=== PATIENT | male | born 1940 | race Caucasian/White ===

== ENCOUNTER 2017-11-28 23:55 | Inpatient (IN) | payer OTHER, MEDICARE ==
[~2017-11-28] VITALS: Ht 165.1 cm; Wt 89.0 kg
[~2017-11-28 23:55] MED LIST: APIX5TAB3 PO; CHLO25TA10 PO; CHOL10008 PO; GLIP10TA11 PO; LIDO700A5 TOP; LORA1TAB PO; LOSA50TA3 PO; MELO-100 PO; METF10002 PO; METO50TA7 PO; OMEP20CA10 PO; ROPI1TAB2 PO; ROSU20TA PO; TRAZ-143 PO
[2017-11-29] VITALS (7 sets, daily range): BP systolic 129–149; BP diastolic 66–88
[2017-11-29 00:32] LABS: BASOPHILS % (AUTO) 0.4 % (0-1); EOSINOPHILS # (AUTO) 0.3 X10'3 (0-0.9); EOSINOPHILS % (AUTO) 2.6 % (0-6); HEMATOCRIT 36.8 % (42.0-52.0); HEMOGLOBIN 12.6 g/dl (14.0-17.9); LYMPHOCYTES # (AUTO) 1.4 X10'3 (1.1-4.8); LYMPHOCYTES % (AUTO) 12.1 % (21-51); MEAN CORPUSCULAR HEMOGLOBIN 28.7 PG (27.0-31.0); MEAN CORPUSCULAR HGB CONC 34.3 % (33.0-36.5); MEAN CORPUSCULAR VOLUME 83.7 FL (78-98); MEAN PLATELET VOLUME 9.3 FL (7.4-10.4); MONOCYTES # (AUTO) 0.5 X10'3 (0-0.9); MONOCYTES % (AUTO) 4.4 % (2-12); NEUTROPHILS # (AUTO) 9.5 X10'3 (1.8-7.7); NEUTROPHILS % (AUTO) 80.5 % (42-75); PLATELET COUNT 338 X10'3 (140-440); RED BLOOD COUNT 4.39 X10'6 (4.70-6.10); RED CELL DISTRIBUTION WIDTH 16.1 % (11.5-14.5); WHITE BLOOD COUNT 11.7 X10'3 (4.5-11.0)
[2017-11-29 00:44] LABS: INR 1.1 INR; PARTIAL THROMBOPLASTIN TIME 29 SECONDS (22-32); PROTHROMBIN TIME 11.7 SECONDS (9.0-12.0)
[2017-11-29 00:56] LABS: ALANINE AMINOTRANSFERASE 65 U/L (12-78); ALBUMIN 3.6 G/DL (3.4-5.0); ALBUMIN/GLOBULIN RATIO 0.9 (1.1-1.5); ALKALINE PHOSPHATASE 85 IU/L (46-116); ANION GAP 15 (8-16); ASPARTATE AMINO TRANSFERASE 58 U/L (10-37); BILIRUBIN,TOTAL 0.4 MG/DL (0.1-1.0); BLOOD UREA NITROGEN 27 MG/DL (7-18); BUN/CREATININE RATIO 13.6 (5.4-32.0); CALCIUM 9.1 MG/DL (8.5-10.1); CHLORIDE 100 MMOL/L (99-107); CREATININE 1.98 MG/DL (0.60-1.10); GLUCOSE 311 MG/DL (70-104); MAGNESIUM 1.3 MG/DL (1.5-2.4); POTASSIUM 4.5 MMOL/L (3.5-5.1); SODIUM 139 MMOL/L (135-145); TOTAL CARBON DIOXIDE 23.6 MMOL/L (24-32); TOTAL PROTEIN 7.8 G/DL (6.4-8.2); eGFR 33 ML/MIN
[2017-11-29] MEDS ORDERED: normal saline 1000ml 1,000 ML IV ONE (01:30)
[2017-11-29] MEDS ORDERED: LORazepam 1 MG tablet PO PRN ×2 (05:05)
[2017-11-29] MEDS ORDERED: ROPINIRole 1mg tablet PO PRN (05:05)
[2017-11-29] MEDS ORDERED: magnesium hydroxide 30ml (MOM) UD suspension PO PRN (05:05)
[2017-11-29] MEDS ORDERED: mag hydrox/Alum hydrox/simeth 30ml oral suspension PO PRN (05:05)
[2017-11-29] MEDS ORDERED: acetaminophen 325mg tablet PO PRN (05:05)
[2017-11-29] MEDS ORDERED: traZODone 50mg tablet PO PRN (05:05)
[2017-11-29] MEDS ORDERED: ondansetron/PF 4mg/2ml inj IV PRN (05:05)
[2017-11-29] MEDS ORDERED: non-formulary drug (Glipizide 1 TAB) PO SCH (07:30)
[2017-11-29] MEDS: LIDOcaine 5% patch TP SCH (08:00)
[2017-11-29] MEDS ORDERED: non-formulary drug (Rosuvastatin Calcium* (Crestor*) 1 TAB) PO SCH ×2 (08:00)
[2017-11-29] MEDS ORDERED: non-formulary drug (Omeprazole 1 CAP) PO SCH (08:00)
[2017-11-29] MEDS ORDERED: pneumococcal 23-VAL P-sac vacc 25 mcg/0.5ml vial IMVAC ONE (08:05)
[2017-11-29] MEDS: atorvastatin 20mg tablet PO SCH (08:45)
[2017-11-29] MEDS: losartan 50mg tablet PO SCH (08:46)
[2017-11-29] MEDS: metoprolol succinate 25mg (24-HOUR) SR. Tablet PO SCH (08:46)
[2017-11-29] MEDS: apixaban 5mg tablet PO SCH ×2 (08:47→20:00)
[2017-11-29] MEDS: pantoprazole 40mg Tablet.DR PO SCH (08:47)
[2017-11-29] MEDS ORDERED: furosemide 10 MG/1 ML 10ml inj IV SCH (10:40)
[2017-11-29 11:04] LABS: CHOL/HDL RATIO 3.8 (0.00-4.99); CHOLESTEROL 168 MG/DL (0-200); HDL CHOLESTEROL 44 MG/DL (35-60); LDL CHOLESTEROL 96 MG/DL (50-100); TRIGLYCERIDES 140 MG/DL (20-135)
[2017-11-29] MEDS ORDERED: aminophylline 250mg/10ml inj. IV PRN (13:10)
[2017-11-29] MEDS ORDERED: metoprolol tartrate 1mg/ml inj IV PRN (13:10)
[2017-11-29] MEDS ORDERED: nitroGLYCERIN 0.4mg SUBLingual tab SL PRN (13:10)
[2017-11-29] MEDS ORDERED: regadenoson 0.4mg/5ml syringe IV ONE (13:10)
[2017-11-29] MEDS ORDERED: regadenoson 0.4mg/5ml syringe IV PRN (13:15)
[2017-11-30] VITALS (13 sets, daily range): BP systolic 134–183; BP diastolic 65–99
[2017-11-30 06:03] LABS: BASOPHILS # (AUTO) 0.1 X10'3 (0-0.2); BASOPHILS % (AUTO) 0.4 % (0-1); EOSINOPHILS # (AUTO) 0.3 X10'3 (0-0.9); EOSINOPHILS % (AUTO) 2.2 % (0-6); HEMOGLOBIN 11.3 g/dl (14.0-17.9); LYMPHOCYTES # (AUTO) 1.1 X10'3 (1.1-4.8); LYMPHOCYTES % (AUTO) 9.7 % (21-51); MEAN CORPUSCULAR HEMOGLOBIN 28.8 PG (27.0-31.0); MEAN CORPUSCULAR HGB CONC 34.2 % (33.0-36.5); MEAN CORPUSCULAR VOLUME 84.1 FL (78-98); MEAN PLATELET VOLUME 9.4 FL (7.4-10.4); MONOCYTES # (AUTO) 0.5 X10'3 (0-0.9); MONOCYTES % (AUTO) 4.4 % (2-12); NEUTROPHILS # (AUTO) 9.9 X10'3 (1.8-7.7); NEUTROPHILS % (AUTO) 83.3 % (42-75); PLATELET COUNT 263 X10'3 (140-440); RED BLOOD COUNT 3.92 X10'6 (4.70-6.10); RED CELL DISTRIBUTION WIDTH 16.1 % (11.5-14.5); WHITE BLOOD COUNT 11.9 X10'3 (4.5-11.0)
[2017-11-30 06:17] LABS: ALANINE AMINOTRANSFERASE 53 U/L (12-78); ALBUMIN 3.3 G/DL (3.4-5.0); ALBUMIN/GLOBULIN RATIO 0.9 (1.1-1.5); ALKALINE PHOSPHATASE 63 IU/L (46-116); ANION GAP 12 (8-16); ASPARTATE AMINO TRANSFERASE 30 U/L (10-37); BILIRUBIN,TOTAL 0.4 MG/DL (0.1-1.0); BLOOD UREA NITROGEN 26 MG/DL (7-18); BUN/CREATININE RATIO 13.8 (5.4-32.0); CHLORIDE 104 MMOL/L (99-107); CREATININE 1.88 MG/DL (0.60-1.10); GLUCOSE 161 MG/DL (70-104); SODIUM 142 MMOL/L (135-145); TOTAL CARBON DIOXIDE 26.3 MMOL/L (24-32); TOTAL PROTEIN 7.1 G/DL (6.4-8.2); eGFR 35 ML/MIN
[2017-11-30] MEDS: metoprolol succinate 25mg (24-HOUR) SR. Tablet PO SCH (08:00)
[2017-11-30] MEDS: losartan 50mg tablet PO SCH (08:00)
[2017-11-30] MEDS: LIDOcaine 5% patch TP SCH (08:00)
[2017-11-30] MEDS: atorvastatin 20mg tablet PO SCH (08:15)
[2017-11-30] MEDS: apixaban 5mg tablet PO SCH (08:15)
[2017-11-30] MEDS: pantoprazole 40mg Tablet.DR PO SCH (08:15)
[2017-11-30] MEDS ORDERED: regadenoson 0.4mg/5ml syringe IV ONE (09:10)
[2017-11-30] MEDS ORDERED: aminophylline inj. 10 ML IV ONE (09:10)
[2017-11-30] MEDS ORDERED: potassium Cl 20 mEq SR tablet PO STA (11:26)
[2017-11-30] MEDS ORDERED: furosemide 20 MG/2 ML vial IV ONE (11:30)
[2017-11-30] MEDS ORDERED: isosorbide mononitrate 30mg tab.SR.24H PO SCH (12:00)
[2017-11-30] MEDS ORDERED: NITR0.4T51 SL (17:54)
[2017-11-30] MEDS ORDERED: ISOS30TA6 PO (17:54)
[2017-12-01] MEDS ORDERED: furosemide 20MG tablet PO SCH (08:00)
[2017-12-02] MEDS ORDERED: isosorbide mononitrate 30mg tab.SR.24H PO SCH (12:00)
== END 2017-11-30 19:01 | disposition home or self-care (01) | DRG 204 ==
LOC: ER 23:55 → ED HOLD 11-29 05:02 → PCU 3S 11-29 16:20
PROVIDERS: ADMIT Internal Medicine; ATTEND Family Medicine
PROC: 4A02XM4 Measurement of Cardiac Total Activity, External Approach (ICD-10-PCS; principal; 2017-11-30)
PROC: 3E073KZ Introduction of Other Diagnostic Substance into Coronary Artery, Percutaneous Approach (ICD-10-PCS; 2017-11-30)
DX: R06.02 Shortness of breath (principal); E11.22 Type 2 diabetes mellitus with diabetic chronic kidney disease; E11.40 Type 2 diabetes mellitus with diabetic neuropathy, unspecified; I13.0 Hypertensive heart and chronic kidney disease with heart failure and stage 1 through stage 4 chronic kidney disease, or unspecified chronic kidney disease; E78.5 Hyperlipidemia, unspecified; F41.9 Anxiety disorder, unspecified; G47.30 Sleep apnea, unspecified; I45.10 Unspecified right bundle-branch block; I25.10 Atherosclerotic heart disease of native coronary artery without angina pectoris; I48.0 Paroxysmal atrial fibrillation; M19.90 Unspecified osteoarthritis, unspecified site; N18.9 Chronic kidney disease, unspecified; I25.2 Old myocardial infarction; Z95.1 Presence of aortocoronary bypass graft; Z79.01 Long term (current) use of anticoagulants; Z79.899 Other long term (current) drug therapy; Z79.84 Long term (current) use of oral hypoglycemic drugs; Z87.891 Personal history of nicotine dependence
CPT/HCPCS: 36415; 71045; 78452; 80053; 80061; 82948; 83735; 83880; 84484; 85025; 85610; 85730; 87070; 90732; 93005; 93017; 93306; 96360; 99285; A9500; J0280; J1940; J2785; J7030

== ENCOUNTER 2018-01-10 13:43 | Day surgery (SDC) | payer MEDICARE, OTHER ==
[2018-01-06 10:28] LABS: BASOPHILS # (AUTO) 0.1 X10'3 (0-0.2); BASOPHILS % (AUTO) 0.7 % (0-1); EOSINOPHILS # (AUTO) 0.4 X10'3 (0-0.9); EOSINOPHILS % (AUTO) 4.3 % (0-6); HEMATOCRIT 39.8 % (42.0-52.0); HEMOGLOBIN 13.4 g/dl (14.0-17.9); LYMPHOCYTES % (AUTO) 12.2 % (21-51); MEAN CORPUSCULAR HEMOGLOBIN 28.9 PG (27.0-31.0); MEAN CORPUSCULAR HGB CONC 33.7 % (33.0-36.5); MEAN CORPUSCULAR VOLUME 85.8 FL (78-98); MEAN PLATELET VOLUME 9.3 FL (7.4-10.4); MONOCYTES # (AUTO) 0.4 X10'3 (0-0.9); MONOCYTES % (AUTO) 5.1 % (2-12); NEUTROPHILS # (AUTO) 6.4 X10'3 (1.8-7.7); NEUTROPHILS % (AUTO) 77.7 % (42-75); PLATELET COUNT 195 X10'3 (140-440); RED BLOOD COUNT 4.63 X10'6 (4.70-6.10); RED CELL DISTRIBUTION WIDTH 16.6 % (11.5-14.5); WHITE BLOOD COUNT 8.3 X10'3 (4.5-11.0)
[2018-01-06 10:35] LABS: ALBUMIN 4.1 G/DL (3.4-5.0); ANION GAP 11 (8-16); BLOOD UREA NITROGEN 27 MG/DL (7-18); BUN/CREATININE RATIO 15.3 (5.4-32.0); CALCIUM 10.1 MG/DL (8.5-10.1); CHLORIDE 104 MMOL/L (99-107); CREATININE 1.76 MG/DL (0.60-1.10); GLUCOSE 145 MG/DL (70-104); POTASSIUM 5.2 MMOL/L (3.5-5.1); SODIUM 140 MMOL/L (135-145); TOTAL CARBON DIOXIDE 25.3 MMOL/L (24-32); eGFR 38 ML/MIN
[2018-01-06 10:36] LABS: PARTIAL THROMBOPLASTIN TIME 30 SECONDS (22-32); PROTHROMBIN TIME 10.8 SECONDS (9.0-12.0)
[~2018-01-10] VITALS: Ht 167.6 cm; Wt 81.1 kg
[~2018-01-10 13:43] MED LIST changes: +ISOS30TA6 PO; +NITR0.4T51 SL
[2018-01-10] MEDS ORDERED: normal saline 1000ml 1,000 ML IV SCH (14:00)
[2018-01-10] MEDS ORDERED: ISOS30TA6 PO (14:01)
[2018-01-10] MEDS ORDERED: NITR0.4T SL (14:03)
[2018-01-10] MEDS ORDERED: FURO-150 PO (14:04)
[2018-01-10] MEDS ORDERED: AMIO200T57 PO (14:04)
[2018-01-10] MEDS ORDERED: MIDAZolam 5mg/ml 2ml vial IV PRN (14:05)
[2018-01-10] MEDS ORDERED: fentaNYL/PF 50MCG/1 ML 2ML syringe IV PRN (14:05)
[2018-01-10 14:10] VITALS: BP 141/67
== END 2018-01-10 14:55 | disposition home or self-care (01) ==
LOC: SSTAY O 13:43
PROVIDERS: ATTEND Internal Medicine Interventional Cardiology
DX: I48.0 Paroxysmal atrial fibrillation (principal); E11.22 Type 2 diabetes mellitus with diabetic chronic kidney disease; I13.0 Hypertensive heart and chronic kidney disease with heart failure and stage 1 through stage 4 chronic kidney disease, or unspecified chronic kidney disease; N18.3 Chronic kidney disease, stage 3 (moderate); I50.9 Heart failure, unspecified; G47.33 Obstructive sleep apnea (adult) (pediatric); I45.2 Bifascicular block; I25.2 Old myocardial infarction; I25.810 Atherosclerosis of coronary artery bypass graft(s) without angina pectoris; E78.5 Hyperlipidemia, unspecified; I65.23 Occlusion and stenosis of bilateral carotid arteries; I34.0 Nonrheumatic mitral (valve) insufficiency; F10.21 Alcohol dependence, in remission; K21.9 Gastro-esophageal reflux disease without esophagitis; Z53.8 Procedure and treatment not carried out for other reasons; Z79.4 Long term (current) use of insulin; Z95.1 Presence of aortocoronary bypass graft; Z79.01 Long term (current) use of anticoagulants; Z86.74 Personal history of sudden cardiac arrest; Z87.891 Personal history of nicotine dependence; Z79.899 Other long term (current) drug therapy
CPT/HCPCS: 36415; 80048; 85025; 85610; 85730; 93005; J7030

== ENCOUNTER 2021-07-18 06:57 | Inpatient (IN) | payer OTHER, MEDICARE ==
[~2021-07-18] VITALS: Ht 165.1 cm; Wt 81.8 kg
[~2021-07-18 06:57] MED LIST changes: +AMIO200T61 PO; -CHLO25TA10 PO; -CHOL10008 PO; +FURO-150 PO; -ISOS30TA6 PO; +ISOS30TA84 PO; -LIDO700A5 TOP; -MELO-100 PO; +METF-438 PO; -METF10002 PO; -METO50TA7 PO; +NITR0.4T SL; -NITR0.4T51 SL; -OMEP20CA10 PO; -ROPI1TAB2 PO; -ROSU20TA PO; +ROSU20TA2 PO; -TRAZ-143 PO; +TRAZ-251 PO
--- NOTE | 2021-07-18 09:09 | NUR ---
Nils hinds in EDM - 07/18/21 at 1059 by ALO Spoke with pts sister Samantha Sanchez [phone] (cell) work number [phone]. Completed MRI checklist with
[2021-07-18 09:30] LABS: BASOPHILS % (AUTO) 0.4 % (0-1); EOSINOPHILS # (AUTO) 0.1 X10'3 (0-0.9); EOSINOPHILS % (AUTO) 0.6 % (0-6); HEMATOCRIT 34.6 % (42.0-52.0); HEMOGLOBIN 11.5 g/dl (14.0-17.9); LYMPHOCYTES # (AUTO) 0.5 X10'3 (1.1-4.8); MEAN CORPUSCULAR HEMOGLOBIN 29.2 PG (27.0-31.0); MEAN CORPUSCULAR HGB CONC 33.1 g/dL (33.0-36.5); MEAN CORPUSCULAR VOLUME 88.2 FL (78-98); MEAN PLATELET VOLUME 9.9 FL (7.4-10.4); MONOCYTES # (AUTO) 0.8 X10'3 (0-0.9); MONOCYTES % (AUTO) 6.2 % (2-12); NEUTROPHILS # (AUTO) 10.9 X10'3 (1.8-7.7); NEUTROPHILS % (AUTO) 88.8 % (42-75); PLATELET COUNT 241 X10'3 (140-440); RED BLOOD COUNT 3.92 X10'6 (4.70-6.10); RED CELL DISTRIBUTION WIDTH 14.4 % (11.5-14.5); WHITE BLOOD COUNT 12.3 X10'3 (4.5-11.0)
[2021-07-18 09:50] LABS: ALBUMIN 3.7 G/DL (3.4-5.0); ANION GAP 14 (8-16); BLOOD UREA NITROGEN 29 MG/DL (7-18); BUN/CREATININE RATIO 13.1 (5.4-32.0); CALCIUM 9.1 MG/DL (8.5-10.1); CHLORIDE 105 MMOL/L (99-107); CREATININE 2.22 MG/DL (0.60-1.10); GLUCOSE 250 MG/DL (70-104); POTASSIUM 4.9 MMOL/L (3.5-5.1); SODIUM 143 MMOL/L (135-145); TOTAL CARBON DIOXIDE 23.8 MMOL/L (24-32); eGFR 29 ML/MIN
[2021-07-18] MEDS ORDERED: CefTRIAXone/D5W-Rocephin 1gm 50 ML IV ONE (10:00)
[2021-07-18] MEDS ORDERED: ondansetron/PF 4mg/2ml inj IV PRN (10:35)
[2021-07-18] MEDS ORDERED: acetaminophen 325mg tablet PO PRN (10:35)
[2021-07-18] MEDS ORDERED: potassium Cl 20 mEq SR tablet PO PRN ×2 (10:35)
[2021-07-18] MEDS ORDERED: magnesium 4gm in 100ml NS 100 ML IV PRN (10:35)
[2021-07-18] MEDS ORDERED: magnesium Cl slow-release 64mg tablet PO PRN (10:35)
[2021-07-18] MEDS ORDERED: potassium Cl 40MEQ/1/2NS 520ml 520 ML IV PRN ×2 (10:35)
[2021-07-18] MEDS ORDERED: magnesium 2GM in 50ml NS 50 ML IV PRN (10:35)
--- NOTE | 2021-07-18 11:00 | NUR ---
BLOOD CXS DRAWN x 2; 2 DIFFERENT SITES
[2021-07-18] MEDS ORDERED: METO-411 PO (11:47)
[2021-07-18] MEDS ORDERED: ALOG12.52 PO (11:47)
[2021-07-18] MEDS ORDERED: GLIM2TAB6 PO (11:47)
--- NOTE | 2021-07-18 12:46 | NUR ---
Pt asleep, pt appears to be resting comfortably
--- NOTE | 2021-07-18 13:16 | NUR ---
Pt given heart healthy diet tray
[2021-07-18] MEDS ORDERED: dextrose ORAL solution 15 GM/59 ML bottle PO PRN ×2 (17:00)
[2021-07-18] MEDS ORDERED: MESSAGE TO PHARMACY PO ONE (17:00)
[2021-07-18] MEDS ORDERED: glucagon, human recombinant 1mg kit SUBCUT PRN (17:00)
[2021-07-18] MEDS ORDERED: dextrose 50%-water 50ml dispensing syringe IV PRN ×2 (17:00)
[2021-07-18] MEDS: isosorbide mononitrate 30mg tab.SR.24H PO SCH (17:51)
[2021-07-18] MEDS: amiodarone 200mg tablet PO SCH (17:51)
[2021-07-18] MEDS: losartan 50mg tablet PO SCH (17:51)
[2021-07-18] MEDS: K and/or MAG REPLACEMENT MC SCH (20:00)
[2021-07-18] MEDS: furosemide 40mg/4ml inj IV SCH (21:04)
--- NOTE | 2021-07-18 21:15 | NUR ---
I have received report from HARSH Bui from ER, and had the opportunity to ask questions and assume patient care.
[2021-07-18 21:35] VITALS: BP 143/63
--- NOTE | 2021-07-18 21:35 | NUR ---
Patient arrived via gurney to room PCU 3017 in stable condition. Able to walk independently without difficulty, went to use the bathroom. Pt AAOX4, Dx: SOB, generalized weakness, fatigue. CXR was done and Pneumonia was noted. Admit because of hypoxia in the 90%, 02 sat now at 94% 1L/hr via N/C. Hx: CHF, HTN, NIDDM, Hyperlipidemia, AFib, former smoker 25 years ago. Covid-19 negative, fully vaccinated with Moderna on November 2020. PIV 20G Left WILFRIDO. Safety measures and comfort maintained. Will continue to monitor.
[2021-07-18] MEDS: insulin glargine (Lantus) pen - multi-dose SQ SCH (21:40)
[2021-07-19 02:00] VITALS: BP 137/68
[2021-07-19 06:00] VITALS: BP 147/93
--- NOTE | 2021-07-19 06:10 | NUR ---
Problems reprioritized. Patient report given, questions answered & plan of care reviewed with HARSH Cook.
[2021-07-19 06:27] LABS: BASOPHILS % (AUTO) 0.5 % (0-1); EOSINOPHILS # (AUTO) 0.1 X10'3 (0-0.9); EOSINOPHILS % (AUTO) 1.7 % (0-6); HEMATOCRIT 32.6 % (42.0-52.0); HEMOGLOBIN 10.9 g/dl (14.0-17.9); LYMPHOCYTES # (AUTO) 0.7 X10'3 (1.1-4.8); LYMPHOCYTES % (AUTO) 8.6 % (21-51); MEAN CORPUSCULAR HEMOGLOBIN 29.7 PG (27.0-31.0); MEAN CORPUSCULAR HGB CONC 33.4 g/dL (33.0-36.5); MEAN CORPUSCULAR VOLUME 88.8 FL (78-98); MONOCYTES # (AUTO) 0.7 X10'3 (0-0.9); MONOCYTES % (AUTO) 8.4 % (2-12); NEUTROPHILS # (AUTO) 6.6 X10'3 (1.8-7.7); NEUTROPHILS % (AUTO) 80.8 % (42-75); PLATELET COUNT 198 X10'3 (140-440); RED BLOOD COUNT 3.68 X10'6 (4.70-6.10); RED CELL DISTRIBUTION WIDTH 14.9 % (11.5-14.5); WHITE BLOOD COUNT 8.2 X10'3 (4.5-11.0)
[2021-07-19 06:56] LABS: ALBUMIN 3.4 G/DL (3.4-5.0); ANION GAP 15 (8-16); BLOOD UREA NITROGEN 37 MG/DL (7-18); BUN/CREATININE RATIO 16.6 (5.4-32.0); CHLORIDE 102 MMOL/L (99-107); CREATININE 2.23 MG/DL (0.60-1.10); GLUCOSE 165 MG/DL (70-104); MAGNESIUM 2.1 MG/DL (1.5-2.4); POTASSIUM 4.5 MMOL/L (3.5-5.1); SODIUM 141 MMOL/L (135-145); TOTAL CARBON DIOXIDE 24.2 MMOL/L (24-32); eGFR 28 ML/MIN
[2021-07-19] MEDS: K and/or MAG REPLACEMENT MC SCH ×2 (08:00→20:00)
[2021-07-19] MEDS: furosemide 40mg/4ml inj IV SCH ×2 (09:50→17:37)
[2021-07-19] MEDS: isosorbide mononitrate 30mg tab.SR.24H PO SCH (09:50)
[2021-07-19] MEDS: amiodarone 200mg tablet PO SCH (09:51)
[2021-07-19] MEDS: losartan 50mg tablet PO SCH (09:52)
[2021-07-19] MEDS: atorvastatin 20mg tablet PO SCH (09:52)
[2021-07-19] MEDS: metoprolol succinate 25mg (24-HOUR) SR. Tablet PO SCH (09:53)
[2021-07-19] MEDS: insulin Lispro (HumaLOG) vial - multi-dose SQ SCH ×4 (09:56→22:09)
[2021-07-19 11:00] VITALS: BP 146/54
--- NOTE | 2021-07-19 11:26 | NUR ---
page: positive blood culture PAGER ID: [phone] MESSAGE: room 3017A Chirag Nolvia CULT BLOOD Preliminary ORGANISM(S) SEEN:GRAM POSITIVE COCCI IN CLUSTERS POSITIVE BOTTLE(S):SEEN IN ANAEROBIC BOTTLE HOURS TO DETECT:19.10
--- NOTE | 2021-07-19 14:15 | NUR ---
Noted pt with NIDDM with A1c 9.6%. Attempted visit with pt at bedside for DM education however pt unavailable. Will try again at another time. Addendum: 07/19/21 at [address] Amended: Links added.
[2021-07-19 15:00] VITALS: BP 133/54
[2021-07-19] MEDS ORDERED: ondansetron 4mg rapidly disintigrating tab PO PRN (15:30)
[2021-07-19] MEDS ORDERED: PERFLUTREN PROTEIN-A MICROSPHR (Optison) 0.22 MG/ML 3ML VIAL IV ONE (16:05)
[2021-07-19] MEDS ORDERED: methylPREDNISolone sod succ 125mg/2ml vial IV ONE (16:05)
--- NOTE | 2021-07-19 16:08 | NUR ---
Sleep aide orders? PAGER ID: [phone] MESSAGE: room 3015D patient requesting sleep aide starting tonight 07/19, reports melatonin and benadryl not being effective in the past, took Ativan in the past but his age is contraindicated for Ativan now. Thank You, Joyce HOUSE [phone]
--- NOTE | 2021-07-19 18:27 | NUR ---
Problems reprioritized. Patient report given, questions answered & plan of care reviewed with Yanni HOUSE.
--- NOTE | 2021-07-19 18:30 | NUR ---
Patient in room PCU 3017. I have received report from KARTIK HOUSE and had the opportunity to ask questions and assume patient care.
[2021-07-19 19:00] VITALS: BP 149/72
[2021-07-19] MEDS: CefTRIAXone/D5W-Rocephin 1gm 50 ML IV SCH (19:42)
[2021-07-19] MEDS ORDERED: temazepam 15mg capsule PO PRN (20:00)
[2021-07-19] MEDS: azithromycin/NS 500mg/250ml 250 ML IV SCH (21:31)
[2021-07-19 22:00] VITALS: BP 109/58
[2021-07-19] MEDS: insulin glargine (Lantus) pen - multi-dose SQ SCH (22:06)
[2021-07-20 02:00] VITALS: BP 116/76
--- NOTE | 2021-07-20 06:22 | NUR ---
Problems reprioritized. Patient report given, questions answered & plan of care reviewed with LETA HOUSE.
--- NOTE | 2021-07-20 06:46 | NUR ---
Patient in room PCU 3017. I have received report from Suzanne Palacios RN and had the opportunity to ask questions and assume patient care.
[2021-07-20 07:00] VITALS: BP 163/73
[2021-07-20 07:15] LABS: BASOPHILS % (AUTO) 0.1 % (0-1); EOSINOPHILS % (AUTO) 0 % (0-6); HEMATOCRIT 33.3 % (42.0-52.0); LYMPHOCYTES # (AUTO) 0.2 X10'3 (1.1-4.8); LYMPHOCYTES % (AUTO) 2.2 % (21-51); MEAN CORPUSCULAR HEMOGLOBIN 29.4 PG (27.0-31.0); MEAN PLATELET VOLUME 10.3 FL (7.4-10.4); MONOCYTES # (AUTO) 0.1 X10'3 (0-0.9); MONOCYTES % (AUTO) 1.1 % (2-12); NEUTROPHILS # (AUTO) 8.7 X10'3 (1.8-7.7); NEUTROPHILS % (AUTO) 96.6 % (42-75); PLATELET COUNT 200 X10'3 (140-440); RED BLOOD COUNT 3.74 X10'6 (4.70-6.10); RED CELL DISTRIBUTION WIDTH 14.6 % (11.5-14.5)
[2021-07-20 07:23] LABS: ALBUMIN 3.2 G/DL (3.4-5.0); ANION GAP 13 (8-16); BLOOD UREA NITROGEN 42 MG/DL (7-18); BUN/CREATININE RATIO 17.7 (5.4-32.0); CALCIUM 8.9 MG/DL (8.5-10.1); CHLORIDE 100 MMOL/L (99-107); CREATININE 2.37 MG/DL (0.60-1.10); GLUCOSE 313 MG/DL (70-104); MAGNESIUM 2.2 MG/DL (1.5-2.4); POTASSIUM 5.2 MMOL/L (3.5-5.1); SODIUM 137 MMOL/L (135-145); TOTAL CARBON DIOXIDE 23.7 MMOL/L (24-32); eGFR 26 ML/MIN
[2021-07-20] MEDS: K and/or MAG REPLACEMENT MC SCH ×2 (08:00→20:00)
[2021-07-20] MEDS: isosorbide mononitrate 30mg tab.SR.24H PO SCH (08:21)
[2021-07-20] MEDS: amiodarone 200mg tablet PO SCH (08:21)
[2021-07-20] MEDS: metoprolol succinate 25mg (24-HOUR) SR. Tablet PO SCH (08:21)
[2021-07-20] MEDS: furosemide 40mg/4ml inj IV SCH (08:21)
[2021-07-20] MEDS: atorvastatin 20mg tablet PO SCH (08:22)
[2021-07-20] MEDS: losartan 50mg tablet PO SCH (08:22)
[2021-07-20] MEDS: CefTRIAXone/D5W-Rocephin 1gm 50 ML IV SCH (08:22)
[2021-07-20] MEDS: insulin Lispro (HumaLOG) vial - multi-dose SQ SCH ×3 (08:36→21:28)
--- NOTE | 2021-07-20 10:40 | NUR ---
Page Sent promotional table spacer PAGER ID: [phone] MESSAGE: [id number] Nolvia. Preliminary report for blood cultures should be up by 11 am today. Juliet [phone]
[2021-07-20] MEDS: azithromycin/NS 500mg/250ml 250 ML IV SCH (10:41)
[2021-07-20 11:00] VITALS: BP 130/58
--- NOTE | 2021-07-20 13:39 | NUR ---
DM consult: Noted pt with NIDDM with A1c 9.6%. Pt refused verbal education but accepted written diabetes education w/ NEHEMIAS contact info. Pt encouraged to contact NEHEMIAS w/ any further questions. Will continue to monitor. Addendum: 07/20/21 at [address] Amended: Links added.
[2021-07-20 15:00] VITALS: BP 127/55
--- NOTE | 2021-07-20 17:13 | NUR ---
[place] documentation: I have reviewed and agree with all interventions, assessments performed and documented by Basia HOUSE. [place] Medication Administration: For this medication-pass time frame, all medication were reviewed, dispensed, administered and documented per hospital policy by Basia HOUSE.
[2021-07-20 18:00] VITALS: BP 133/50
--- NOTE | 2021-07-20 18:16 | NUR ---
Problems reprioritized. Patient report given, questions answered & plan of care reviewed with Xenia HOUSE. Patient sitting in chair eating dinner, in no acute distress.
--- NOTE | 2021-07-20 18:30 | NUR ---
Patient in room PCU 3017. I have received report from Juliet RN/Basia RN and had the opportunity to ask questions and assume patient care.
[2021-07-20] MEDS: lactobacillus rhamnosus 10,000 MMU CELLS/CAPSULE PO SCH (21:08)
[2021-07-20] MEDS: insulin glargine (Lantus) pen - multi-dose SQ SCH (21:22)
[2021-07-20 22:00] VITALS: BP 152/73
[2021-07-21 02:00] VITALS: BP 145/70
[2021-07-21 06:16] LABS: ALBUMIN 3.7 G/DL (3.4-5.0); ANION GAP 12 (8-16); BLOOD UREA NITROGEN 56 MG/DL (7-18); BUN/CREATININE RATIO 21.9 (5.4-32.0); CALCIUM 9.4 MG/DL (8.5-10.1); CHLORIDE 101 MMOL/L (99-107); CREATININE 2.56 MG/DL (0.60-1.10); GLUCOSE 189 MG/DL (70-104); MAGNESIUM 2.5 MG/DL (1.5-2.4); POTASSIUM 4.5 MMOL/L (3.5-5.1); SODIUM 138 MMOL/L (135-145); TOTAL CARBON DIOXIDE 24.8 MMOL/L (24-32); eGFR 24 ML/MIN
[2021-07-21 06:19] LABS: BASOPHILS % (AUTO) 0.3 % (0-1); EOSINOPHILS # (AUTO) 0.1 X10'3 (0-0.9); EOSINOPHILS % (AUTO) 0.6 % (0-6); HEMATOCRIT 33.6 % (42.0-52.0); HEMOGLOBIN 11.1 g/dl (14.0-17.9); LYMPHOCYTES # (AUTO) 0.6 X10'3 (1.1-4.8); LYMPHOCYTES % (AUTO) 4.7 % (21-51); MEAN CORPUSCULAR HEMOGLOBIN 29.2 PG (27.0-31.0); MEAN CORPUSCULAR HGB CONC 33.1 g/dL (33.0-36.5); MEAN CORPUSCULAR VOLUME 88.3 FL (78-98); MONOCYTES % (AUTO) 7.4 % (2-12); NEUTROPHILS # (AUTO) 11.9 X10'3 (1.8-7.7); PLATELET COUNT 263 X10'3 (140-440); RED BLOOD COUNT 3.81 X10'6 (4.70-6.10); RED CELL DISTRIBUTION WIDTH 14.9 % (11.5-14.5); WHITE BLOOD COUNT 13.7 X10'3 (4.5-11.0)
--- NOTE | 2021-07-21 06:35 | NUR ---
Problems reprioritized. Patient report given, questions answered & plan of care reviewed with Juliet RN/Basia RN.
--- NOTE | 2021-07-21 06:49 | NUR ---
Patient in room PCU 3017. I have received report from Xenia HOUSE and had the opportunity to ask questions and assume patient care.
[2021-07-21 07:00] VITALS: BP 181/64
[2021-07-21] MEDS: K and/or MAG REPLACEMENT MC SCH (08:00)
[2021-07-21] MEDS: azithromycin/NS 500mg/250ml 250 ML IV SCH (08:28)
[2021-07-21] MEDS: CefTRIAXone/D5W-Rocephin 1gm 50 ML IV SCH (08:28)
[2021-07-21] MEDS: amiodarone 200mg tablet PO SCH (08:29)
[2021-07-21] MEDS: losartan 50mg tablet PO SCH (08:29)
[2021-07-21] MEDS: lactobacillus rhamnosus 10,000 MMU CELLS/CAPSULE PO SCH (08:29)
[2021-07-21] MEDS: isosorbide mononitrate 30mg tab.SR.24H PO SCH (08:30)
[2021-07-21] MEDS: atorvastatin 20mg tablet PO SCH (08:30)
[2021-07-21] MEDS: metoprolol succinate 25mg (24-HOUR) SR. Tablet PO SCH (08:30)
[2021-07-21] MEDS: insulin Lispro (HumaLOG) vial - multi-dose SQ SCH (08:33)
[2021-07-21] MEDS ORDERED: LEVO500T89 PO (09:58)
[2021-07-21] MEDS ORDERED: IPRA3AMP9 IH (10:01)
[2021-07-21 11:00] VITALS: BP 129/49
--- NOTE | 2021-07-21 12:21 | NUR ---
Signature for medications. Sent page to physician for signature on prescriptions. Page Sent PAGER ID: [phone] MESSAGE: [facility], Chirag De Souza: Patient uses [place] pharmacy and needs a signature for his medications. [place] [phone]
--- NOTE | 2021-07-21 13:13 | NUR ---
Page Sent promotional table spacer PAGER ID: [phone] MESSAGE: [id number] Nolvia. [facility] not [facility] while patient is on amio due to prolonged QT interval. She suggested doxy with Keflex or doxy with amoxicillin. Please call with new RX order. Thanks Juliet [phone]
--- NOTE | 2021-07-21 14:11 | NUR ---
Patient was DC to home and family picked him up. PIV was removed with cannula intact. RX were faxed to [place] pharmacy and hard copy handed to patient. DC instructions and warning s/s were reviewed with the patient and he verbalized understanding. All belongings went with the patient including the nebulizer. Patient was alert, oriented, and in no acute distress. Pt educated to use his CPAP at night at home.
== END 2021-07-21 13:57 | disposition home or self-care (01) | DRG 193 ==
LOC: ER 06:57 → UNDOADMIN 10:35 → ED HOLD 10:35 → EDBEDREQ 20:28 → ED HOLD 21:37 → PCU 3S 21:37
PROVIDERS: ADMIT Internal Medicine; ATTEND Internal Medicine
DX: J18.9 Pneumonia, unspecified organism (principal); J96.91 Respiratory failure, unspecified with hypoxia; I50.43 Acute on chronic combined systolic (congestive) and diastolic (congestive) heart failure; I13.0 Hypertensive heart and chronic kidney disease with heart failure and stage 1 through stage 4 chronic kidney disease, or unspecified chronic kidney disease; J98.11 Atelectasis; I48.20 Chronic atrial fibrillation, unspecified; J44.0 Chronic obstructive pulmonary disease with (acute) lower respiratory infection; J44.1 Chronic obstructive pulmonary disease with (acute) exacerbation; N17.9 Acute kidney failure, unspecified; Z20.822 Contact with and (suspected) exposure to COVID-19; E11.22 Type 2 diabetes mellitus with diabetic chronic kidney disease; E78.5 Hyperlipidemia, unspecified; I25.10 Atherosclerotic heart disease of native coronary artery without angina pectoris; N18.9 Chronic kidney disease, unspecified; T50.1X5A Adverse effect of loop [high-ceiling] diuretics, initial encounter; Z79.84 Long term (current) use of oral hypoglycemic drugs; Z87.891 Personal history of nicotine dependence; Z95.1 Presence of aortocoronary bypass graft; Y92.89 Other specified places as the place of occurrence of the external cause
CPT/HCPCS: 36415; 71045; 80048; 82948; 83036; 83605; 83735; 83880; 84484; 85025; 87040; 87077; 87081; 87186; 87635; 93005; 93306; 97161; 97530; 99285; C9803; G0378; J0456; J0696; J1815; J1940; J2930

== ENCOUNTER 2022-09-26 15:57 | Inpatient (IN) | payer OTHER, MEDICARE ==
[~2022-09-26] VITALS: Ht 165.1 cm; Wt 70.0 kg
[~2022-09-26 15:57] MED LIST changes: +ALOG12.52 PO; -APIX5TAB3 PO; -FURO-150 PO; +GLIM2TAB6 PO; -GLIP10TA11 PO; +IPRA3AMP9 IH; -LORA1TAB PO; -METF-438 PO; +METO-411 PO; -NITR0.4T SL; -TRAZ-251 PO
[2022-09-26 16:22] LABS: BASOPHILS # (AUTO) 0.1 X10'3 (0-0.2); BASOPHILS % (AUTO) 0.6 % (0-1); EOSINOPHILS # (AUTO) 0.1 X10'3 (0-0.9); EOSINOPHILS % (AUTO) 0.8 % (0-6); HEMOGLOBIN 13.4 g/dl (14.0-17.9); LYMPHOCYTES # (AUTO) 0.5 X10'3 (1.1-4.8); LYMPHOCYTES % (AUTO) 5.2 % (21-51); MEAN CORPUSCULAR HEMOGLOBIN 26.6 PG (27.0-31.0); MEAN CORPUSCULAR VOLUME 83.3 FL (78-98); MEAN PLATELET VOLUME 8.6 FL (7.4-10.4); MONOCYTES # (AUTO) 0.5 X10'3 (0-0.9); NEUTROPHILS % (AUTO) 88.4 % (42-75); PLATELET COUNT 237 X10'3 (140-440); RED BLOOD COUNT 5.05 X10'6 (4.70-6.10); RED CELL DISTRIBUTION WIDTH 18.2 % (11.5-14.5); WHITE BLOOD COUNT 10.1 X10'3 (4.5-11.0)
[2022-09-26 16:45] LABS: ALANINE AMINOTRANSFERASE 38 U/L (12-78); ALBUMIN 3.4 G/DL (3.4-5.0); ALBUMIN/GLOBULIN RATIO 0.9 (1.1-1.5); ALKALINE PHOSPHATASE 85 IU/L (46-116); ANION GAP 12 (8-16); ASPARTATE AMINO TRANSFERASE 30 U/L (10-37); BILIRUBIN,TOTAL 0.4 MG/DL (0.1-1.0); BLOOD UREA NITROGEN 42 MG/DL (7-18); BUN/CREATININE RATIO 8.5 (5.4-32.0); CALCIUM 9.5 MG/DL (8.5-10.1); CHLORIDE 96 MMOL/L (99-107); CREATININE 4.95 MG/DL (0.60-1.10); GLUCOSE 132 MG/DL (70-104); SODIUM 131 MMOL/L (135-145); TOTAL CARBON DIOXIDE 23.1 MMOL/L (24-32); TOTAL PROTEIN 7.3 G/DL (6.4-8.2); eGFR 11 ML/MIN
[2022-09-26 16:48] LABS: POTASSIUM 6.1 MMOL/L (3.5-5.1)
[2022-09-26] MEDS ORDERED: normal saline 1000ML IV soln IVB ONE (17:05)
[2022-09-26] MEDS ORDERED: sodium polystyrene sulfonate 15gm/60ml oral suspension PO ONE (17:55)
[2022-09-26] MEDS ORDERED: calcium chloride 100 MG/1 ML inj IV ONE (17:55)
[2022-09-26] MEDS ORDERED: normal saline 1000ml 1,000 ML IV ONE (17:55)
[2022-09-26] MEDS ORDERED: dextrose 50%-water 50ml dispensing syringe IV ONE (17:55)
[2022-09-26] MEDS ORDERED: insulin regular, human 10 units/0.1 ml syringe IV ONE (17:55)
--- NOTE | 2022-09-26 18:02 | NUR ---
kayexelate, calcium chloride, insulin- meds unverified at this time.
[2022-09-26] MEDS ORDERED: acetaminophen 325mg tablet PO PRN ×2 (18:20)
[2022-09-26] MEDS ORDERED: insulin Lispro (HumaLOG) vial - multi-dose SQ SCH (18:20)
[2022-09-26] MEDS ORDERED: acetaminophen 650mg rectal suppository RC PRN (18:20)
[2022-09-26] MEDS ORDERED: magnesium 4gm in 100ml NS 100 ML IV PRN (18:20)
[2022-09-26] MEDS ORDERED: PERFLUTREN PROTEIN-A MICROSPHR (Optison) 0.22 MG/ML 3ML VIAL IV ONE (18:20)
[2022-09-26] MEDS ORDERED: MESSAGE TO PHARMACY PO ONE (18:20)
[2022-09-26] MEDS ORDERED: morphine 2 MG/ML inj. syringe IV PRN ×2 (18:20)
[2022-09-26] MEDS ORDERED: DEXTROSE 15 GM of carb/4 tabs (each vial/BOTTLE has 4 tablets) PO PRN ×2 (18:20)
[2022-09-26] MEDS ORDERED: HYDROcodone/acetaminophen 5mg/325mg tablet PO PRN (18:20)
[2022-09-26] MEDS ORDERED: HYDROcodone/acetaminophen 10/325mg tab PO PRN (18:20)
[2022-09-26] MEDS ORDERED: mag hydrox/Alum hydrox/simeth 30ml oral suspension PO PRN (18:20)
[2022-09-26] MEDS ORDERED: ondansetron/PF 4mg/2ml inj IV PRN (18:20)
[2022-09-26] MEDS ORDERED: magnesium Cl slow-release 64mg tablet PO PRN (18:20)
[2022-09-26] MEDS ORDERED: diphenhydrAMINE 25mg capsule PO PRN (18:20)
[2022-09-26] MEDS ORDERED: bisacodyl 10mg suppository rectal RC PRN (18:20)
[2022-09-26] MEDS ORDERED: potassium Cl 20 mEq SR tablet PO PRN ×2 (18:20)
[2022-09-26] MEDS ORDERED: dextrose 50%-water 50ml dispensing syringe IV PRN ×2 (18:20)
[2022-09-26] MEDS ORDERED: glucagon, human recombinant 1mg kit SUBCUT PRN (18:20)
[2022-09-26] MEDS ORDERED: magnesium hydroxide 30ml (MOM) UD suspension PO PRN (18:20)
[2022-09-26] MEDS ORDERED: potassium Cl 40MEQ/1/2NS 520ml 520 ML IV PRN (18:20)
[2022-09-26] MEDS: normal saline 1000ml 1,000 ML IV SCH (18:37)
[2022-09-26 19:54] LABS: HEMOGLOBIN A1C 6.7 % (4.5-6.2)
[2022-09-26] MEDS: K and/or MAG REPLACEMENT MC SCH (19:59)
[2022-09-26] MEDS ORDERED: heparin, porcine 5000 units/ml vial SQ SCH (20:00)
[2022-09-26] MEDS ORDERED: SYN0.088T PO (20:01)
[2022-09-26] MEDS ORDERED: EMPA10TA PO (20:01)
[2022-09-26] MEDS ORDERED: APIX2.5T PO (20:01)
[2022-09-26] MEDS ORDERED: DOXA2TAB2 PO (20:01)
[2022-09-26] MEDS: insulin glargine (Lantus) pen - multi-dose SQ SCH (21:00)
[2022-09-26] MEDS ORDERED: EZET10TA6 PO (21:02)
[2022-09-26] MEDS ORDERED: AMIO200T61 PO (21:02)
[2022-09-26] MEDS: docusate sod 100mg capsule PO SCH (21:25)
[2022-09-26 22:52] LABS: POTASSIUM 4.5 MMOL/L (3.5-5.1)
[2022-09-27 02:03] LABS: CLARITY,URINE CLEAR (Clear); COLOR,URINE YELLOW (Yellow); GLUCOSE, URINE 250 mg/dl (Neg); KETONES,URINE NEGATIVE (Neg); LEUKOCYTE ESTERASE ,URINE NEGATIVE (Neg); NITRITES, URINE NEGATIVE (Neg); OCCULT BLOOD,URINE NEGATIVE (Neg); PH,URINE 5.5 (4.8-8.0); PROTEIN,URINE NEGATIVE (Neg); UROBILINOGEN,URINE 0.2 E.U/dL (0.2-1.0)
[2022-09-27 02:06] LABS: UA COLLECTION TYPE CLN CATCH MIDSTREAM
[2022-09-27 02:18] LABS: TOTAL PROTEIN,URINE RANDOM 12.3 MG/DL
[2022-09-27] MEDS: ipratropium/albuterol 3ml nebule IH SCH ×4 (02:41→19:52)
[2022-09-27] MEDS: normal saline 1000ml 1,000 ML IV SCH ×3 (02:56→19:20)
[2022-09-27 06:59] LABS: BASOPHILS % (AUTO) 0.7 % (0-1); EOSINOPHILS # (AUTO) 0.1 X10'3 (0-0.9); HEMATOCRIT 41.9 % (42.0-52.0); HEMOGLOBIN 13.7 g/dl (14.0-17.9); LYMPHOCYTES # (AUTO) 0.9 X10'3 (1.1-4.8); LYMPHOCYTES % (AUTO) 12.7 % (21-51); MEAN CORPUSCULAR HEMOGLOBIN 27.2 PG (27.0-31.0); MEAN CORPUSCULAR HGB CONC 32.6 g/dL (33.0-36.5); MEAN CORPUSCULAR VOLUME 83.5 FL (78-98); MEAN PLATELET VOLUME 9.6 FL (7.4-10.4); MONOCYTES # (AUTO) 0.5 X10'3 (0-0.9); MONOCYTES % (AUTO) 7.9 % (2-12); NEUTROPHILS # (AUTO) 5.3 X10'3 (1.8-7.7); NEUTROPHILS % (AUTO) 76.7 % (42-75); PLATELET COUNT 182 X10'3 (140-440); RED BLOOD COUNT 5.02 X10'6 (4.70-6.10); RED CELL DISTRIBUTION WIDTH 18.2 % (11.5-14.5); WHITE BLOOD COUNT 6.9 X10'3 (4.5-11.0)
--- NOTE | 2022-09-27 06:59 | NUR ---
Patient in room PCU 3012. I have received report from Davidson HOUSE and had the opportunity to ask questions and assume patient care.
[2022-09-27 07:00] VITALS: BP 110/40
[2022-09-27 07:39] LABS: ALANINE AMINOTRANSFERASE 34 U/L (12-78); ALBUMIN 3.3 G/DL (3.4-5.0); ALBUMIN/GLOBULIN RATIO 0.8 (1.1-1.5); ALKALINE PHOSPHATASE 86 IU/L (46-116); ANION GAP 12 (8-16); ASPARTATE AMINO TRANSFERASE 25 U/L (10-37); BILIRUBIN,TOTAL 0.4 MG/DL (0.1-1.0); BLOOD UREA NITROGEN 40 MG/DL (7-18); BUN/CREATININE RATIO 10.1 (5.4-32.0); CALCIUM 9.5 MG/DL (8.5-10.1); CHLORIDE 101 MMOL/L (99-107); CHOL/HDL RATIO 5.2 (0.00-4.99); CHOLESTEROL 201 MG/DL (0-200); CREATININE 3.96 MG/DL (0.60-1.10); GLUCOSE 89 MG/DL (70-104); HDL CHOLESTEROL 39 MG/DL (35-60); LDL CHOLESTEROL 113 MG/DL (50-100); MAGNESIUM 2.1 MG/DL (1.5-2.4); PHOSPHORUS 4.1 MG/DL (2.3-4.5); POTASSIUM 4.4 MMOL/L (3.5-5.1); SODIUM 136 MMOL/L (135-145); TOTAL CARBON DIOXIDE 23.2 MMOL/L (24-32); TOTAL PROTEIN 7.3 G/DL (6.4-8.2); TRIGLYCERIDES 249 MG/DL (20-135); eGFR 15 ML/MIN
[2022-09-27] MEDS: K and/or MAG REPLACEMENT MC SCH ×2 (08:00→20:00)
[2022-09-27] MEDS: amiodarone 200mg tablet PO SCH (08:49)
[2022-09-27] MEDS: losartan 50mg tablet PO SCH (08:50)
[2022-09-27] MEDS: ezetimibe 10mg tablet PO SCH (08:50)
[2022-09-27] MEDS: docusate sod 100mg capsule PO SCH ×2 (08:50→20:00)
[2022-09-27] MEDS: doxazosin mesylate 2mg tablet PO SCH (08:50)
[2022-09-27] MEDS: levoTHYROXINE 88mcg tablet PO SCH (08:50)
[2022-09-27] MEDS: isosorbide mononitrate 30mg tab.SR.24H PO SCH (08:50)
[2022-09-27] MEDS: apixaban 2.5mg tablet PO SCH ×2 (08:51→20:30)
[2022-09-27] MEDS: metoprolol succinate 25mg (24-HOUR) SR. Tablet PO SCH (08:51)
--- NOTE | 2022-09-27 08:59 | NUR ---
vascular lab called and reported that the patient has a 80-99% Stenosis in L ICA
--- NOTE | 2022-09-27 09:02 | NUR ---
Message: [phone] [facility] Vascular lab called and reported patient has 80-99% stenosis of L ICA. Thank you Earlene BLACKBURN [phone]
[2022-09-27 11:29] VITALS: BP 117/47
[2022-09-27] MEDS ORDERED: regadenoson 0.4mg/5ml syringe IV PRN (12:50)
[2022-09-27] MEDS ORDERED: aminophylline 250mg/10ml inj. IV PRN (12:50)
[2022-09-27] MEDS ORDERED: nitroGLYCERIN 0.4mg SUBLingual tab SL PRN (12:50)
[2022-09-27] MEDS ORDERED: metoprolol tartrate 1mg/ml inj IV PRN (12:50)
[2022-09-27] MEDS: atorvastatin 20mg tablet PO SCH (13:33)
[2022-09-27 16:49] VITALS: BP 132/60
[2022-09-27] MEDS ORDERED: ondansetron 4mg rapidly disintigrating tab PO PRN (16:50)
--- NOTE | 2022-09-27 17:24 | NUR ---
Malnutrition Consult: Pt admit DX syncope, volume depletion related STACEY, hyponatremia, and L carotid artery stenosis per EMR. Hx taking Ozempic past couple months resulting in decreased appetite, not drinking enough fluids, and subsequent 35 pounds wt loss per MD note. Pt seen by RD at bedside; per pt Ozempic eliminated appetite as he felt full and couldn't eat for rest of the day after only having half a sandwich also impacting fluids intake. Pt reports UBW 180 pounds w/ at least 25 pounds wt loss; consistent w/ 06/2021 reported wt hx of 180 pounds and current reported wt 154 pounds in EMR. Given ~25-35 pounds wt loss over couple month period 14-19% UBW loss and decreased intake hx pt meets severe malnutrition criteria; MD notified. Pt reports tries to follow healthy diet at home requests DM/healthy diet information from RD. RD provided pt w/ written/verbal DM diet ed w/ RD contact information and encouraged pt to contact dietitian's office if further questions/concerns. PO 100% initial meals this admit w/ appetite returning per pt today; if current PO intake persists will be meeting estimated nutrient needs. Will monitor for further nutrition intervention needs this admit. Rec: 1. continue carb controlled diet; consider changing to heart healthy if Glu remains adequate w/ 100% intake of meals given advanced age and malnutrition status 2. monitor further PO trends for ONS needs 3. routine bowel care 4. scaled wt this admit; subsequent weekly wts Addendum: 09/27/22 at [address] Amended: Links added.
--- NOTE | 2022-09-27 18:12 | NUR ---
Problems reprioritized. Patient report given, questions answered & plan of care reviewed with Pearl HOUSE.
[2022-09-27 19:00] VITALS: BP 130/52
[2022-09-27] MEDS: temazepam 15mg capsule PO PRN (20:30)
[2022-09-27] MEDS: insulin glargine (Lantus) pen - multi-dose SQ SCH (20:39)
[2022-09-27 22:00] VITALS: BP 133/56
[2022-09-28] VITALS (14 sets, daily range): BP systolic 137–200; BP diastolic 59–76
[2022-09-28] MEDS: ipratropium/albuterol 3ml nebule IH SCH ×4 (02:00→19:51)
[2022-09-28] MEDS: normal saline 1000ml 1,000 ML IV SCH ×3 (02:17→21:15)
--- NOTE | 2022-09-28 06:38 | NUR ---
Patient in room PCU 3012. I have received report from Pearl HOUSE and had the opportunity to ask questions and assume patient care.
[2022-09-28 07:06] LABS: BASOPHILS # (AUTO) 0.1 X10'3 (0-0.2); BASOPHILS % (AUTO) 0.9 % (0-1); EOSINOPHILS # (AUTO) 0.1 X10'3 (0-0.9); EOSINOPHILS % (AUTO) 2.1 % (0-6); HEMATOCRIT 38.9 % (42.0-52.0); HEMOGLOBIN 12.6 g/dl (14.0-17.9); LYMPHOCYTES # (AUTO) 0.7 X10'3 (1.1-4.8); LYMPHOCYTES % (AUTO) 10.3 % (21-51); MEAN CORPUSCULAR HGB CONC 32.3 g/dL (33.0-36.5); MEAN CORPUSCULAR VOLUME 83.6 FL (78-98); MEAN PLATELET VOLUME 8.7 FL (7.4-10.4); MONOCYTES # (AUTO) 0.6 X10'3 (0-0.9); NEUTROPHILS # (AUTO) 5.5 X10'3 (1.8-7.7); NEUTROPHILS % (AUTO) 78.7 % (42-75); PLATELET COUNT 163 X10'3 (140-440); RED BLOOD COUNT 4.65 X10'6 (4.70-6.10); RED CELL DISTRIBUTION WIDTH 18.2 % (11.5-14.5); WHITE BLOOD COUNT 6.9 X10'3 (4.5-11.0)
[2022-09-28] MEDS: K and/or MAG REPLACEMENT MC SCH ×2 (08:00→19:19)
[2022-09-28 08:03] LABS: ALANINE AMINOTRANSFERASE 22 U/L (12-78); ALBUMIN 2.9 G/DL (3.4-5.0); ALBUMIN/GLOBULIN RATIO 0.9 (1.1-1.5); ALKALINE PHOSPHATASE 74 IU/L (46-116); ANION GAP 10 (8-16); ASPARTATE AMINO TRANSFERASE 27 U/L (10-37); BILIRUBIN,TOTAL 0.3 MG/DL (0.1-1.0); BLOOD UREA NITROGEN 34 MG/DL (7-18); BUN/CREATININE RATIO 12.1 (5.4-32.0); CALCIUM 8.3 MG/DL (8.5-10.1); CHLORIDE 109 MMOL/L (99-107); GLUCOSE 80 MG/DL (70-104); MAGNESIUM 1.9 MG/DL (1.5-2.4); PHOSPHORUS 3.3 MG/DL (2.3-4.5); POTASSIUM 4.1 MMOL/L (3.5-5.1); SODIUM 142 MMOL/L (135-145); TOTAL CARBON DIOXIDE 23.1 MMOL/L (24-32); TOTAL PROTEIN 6.1 G/DL (6.4-8.2); eGFR 22 ML/MIN
[2022-09-28] MEDS: apixaban 2.5mg tablet PO SCH (08:06)
[2022-09-28] MEDS: isosorbide mononitrate 30mg tab.SR.24H PO SCH (08:06)
[2022-09-28] MEDS: atorvastatin 20mg tablet PO SCH (08:06)
[2022-09-28] MEDS: ezetimibe 10mg tablet PO SCH (08:06)
[2022-09-28] MEDS: metoprolol succinate 25mg (24-HOUR) SR. Tablet PO SCH (08:06)
[2022-09-28] MEDS: losartan 50mg tablet PO SCH (08:07)
[2022-09-28] MEDS: docusate sod 100mg capsule PO SCH ×2 (08:07→21:14)
[2022-09-28] MEDS: doxazosin mesylate 2mg tablet PO SCH (08:07)
[2022-09-28] MEDS: levoTHYROXINE 88mcg tablet PO SCH (08:07)
[2022-09-28] MEDS: amiodarone 200mg tablet PO SCH (08:07)
--- NOTE | 2022-09-28 18:30 | NUR ---
Problems reprioritized. Patient report given, questions answered & plan of care reviewed with Jess HOUSE.
--- NOTE | 2022-09-28 19:03 | NUR ---
Patient in room PCU 3012. I have received report from NANCI HOUSE and had the opportunity to ask questions and assume patient care.
[2022-09-28] MEDS: insulin glargine (Lantus) pen - multi-dose SQ SCH (21:00)
[2022-09-28] MEDS: temazepam 15mg capsule PO PRN (21:14)
[2022-09-29] MEDS: heparin, porcine 5000 units/ml vial SQ SCH ×3 (00:25→18:00)
[2022-09-29 02:00] VITALS: BP 155/60
[2022-09-29] MEDS: ipratropium/albuterol 3ml nebule IH SCH ×5 (02:00→19:44)
[2022-09-29] MEDS: normal saline 1000ml 1,000 ML IV SCH ×3 (04:37→12:40)
--- NOTE | 2022-09-29 06:26 | NUR ---
Problems reprioritized. Patient report given, questions answered & plan of care reviewed with NANCI HOUSE.
[2022-09-29 06:30] VITALS: BP 171/76
--- NOTE | 2022-09-29 06:30 | NUR ---
Patient in room PCU 3012. I have received report from Jess HOUSE and had the opportunity to ask questions and assume patient care.
[2022-09-29 07:11] LABS: BASOPHILS % (AUTO) 0.7 % (0-1); EOSINOPHILS # (AUTO) 0.1 X10'3 (0-0.9); EOSINOPHILS % (AUTO) 2.1 % (0-6); HEMATOCRIT 41.4 % (42.0-52.0); LYMPHOCYTES # (AUTO) 0.6 X10'3 (1.1-4.8); LYMPHOCYTES % (AUTO) 8.2 % (21-51); MEAN CORPUSCULAR HEMOGLOBIN 26.4 PG (27.0-31.0); MEAN CORPUSCULAR HGB CONC 31.3 g/dL (33.0-36.5); MEAN CORPUSCULAR VOLUME 84.4 FL (78-98); MEAN PLATELET VOLUME 8.9 FL (7.4-10.4); MONOCYTES # (AUTO) 0.4 X10'3 (0-0.9); NEUTROPHILS # (AUTO) 5.8 X10'3 (1.8-7.7); PLATELET COUNT 181 X10'3 (140-440); RED BLOOD COUNT 4.91 X10'6 (4.70-6.10); RED CELL DISTRIBUTION WIDTH 18.9 % (11.5-14.5); WHITE BLOOD COUNT 6.9 X10'3 (4.5-11.0)
[2022-09-29 07:21] LABS: ALBUMIN 3.2 G/DL (3.4-5.0); ALBUMIN/GLOBULIN RATIO 0.9 (1.1-1.5); ALKALINE PHOSPHATASE 90 IU/L (46-116); ANION GAP 9 (8-16); ASPARTATE AMINO TRANSFERASE 33 U/L (10-37); BILIRUBIN,TOTAL 0.4 MG/DL (0.1-1.0); BLOOD UREA NITROGEN 24 MG/DL (7-18); BUN/CREATININE RATIO 10.7 (5.4-32.0); CALCIUM 8.2 MG/DL (8.5-10.1); CHLORIDE 108 MMOL/L (99-107); CREATININE 2.25 MG/DL (0.60-1.10); GLUCOSE 105 MG/DL (70-104); MAGNESIUM 1.7 MG/DL (1.5-2.4); PHOSPHORUS 2.8 MG/DL (2.3-4.5); POTASSIUM 3.8 MMOL/L (3.5-5.1); SODIUM 142 MMOL/L (135-145); TOTAL PROTEIN 6.7 G/DL (6.4-8.2); eGFR 28 ML/MIN
[2022-09-29 07:31] LABS: ALANINE AMINOTRANSFERASE 30 U/L (12-78)
[2022-09-29] MEDS: ezetimibe 10mg tablet PO SCH (07:43)
[2022-09-29] MEDS: amiodarone 200mg tablet PO SCH (07:43)
[2022-09-29] MEDS: docusate sod 100mg capsule PO SCH ×2 (07:43→20:00)
[2022-09-29] MEDS: atorvastatin 20mg tablet PO SCH (07:43)
[2022-09-29] MEDS: metoprolol succinate 25mg (24-HOUR) SR. Tablet PO SCH (07:43)
[2022-09-29] MEDS: isosorbide mononitrate 30mg tab.SR.24H PO SCH (07:43)
[2022-09-29] MEDS: levoTHYROXINE 88mcg tablet PO SCH (07:44)
[2022-09-29] MEDS: doxazosin mesylate 2mg tablet PO SCH (07:44)
[2022-09-29] MEDS: losartan 50mg tablet PO SCH (07:44)
[2022-09-29] MEDS: K and/or MAG REPLACEMENT MC SCH ×2 (08:00→20:00)
[2022-09-29 12:16] VITALS: BP 167/78
[2022-09-29] MEDS ORDERED: LEVO75CA5 PO (13:25)
[2022-09-29] MEDS ORDERED: FURO-150 PO (13:25)
[2022-09-29] MEDS ORDERED: ATOR10TA70 PO (13:25)
[2022-09-29] MEDS ORDERED: SEMA1PEN3 SQ (13:29)
[2022-09-29 16:15] VITALS: BP 124/67
[2022-09-29 18:00] VITALS: BP 168/101
--- NOTE | 2022-09-29 18:27 | NUR ---
Problems reprioritized. Patient report given, questions answered & plan of care reviewed with Lauryn HOUSE.
[2022-09-29] MEDS: insulin glargine (Lantus) pen - multi-dose SQ SCH (21:00)
[2022-09-29] MEDS: temazepam 15mg capsule PO PRN (21:20)
[2022-09-29 22:00] VITALS: BP 136/64
[2022-09-30] VITALS (20 sets, daily range): BP systolic 114–184; BP diastolic 47–70
[2022-09-30] MEDS: ipratropium/albuterol 3ml nebule IH SCH ×4 (02:00→20:36)
[2022-09-30] MEDS: normal saline 1000ml 1,000 ML IV SCH ×4 (02:56→21:19)
[2022-09-30] MEDS: heparin, porcine 5000 units/ml vial SQ SCH ×3 (04:02→15:28)
[2022-09-30] MEDS ORDERED: heparin 10,000 units/1 ML INJ ONE (06:56)
[2022-09-30] MEDS ORDERED: LIDOcaine 1%/PF 5ML 10 MG/ML VIAL ONE ×2 (06:56→08:50)
[2022-09-30] MEDS: levoTHYROXINE 88mcg tablet PO SCH (07:30)
[2022-09-30 07:40] LABS: BASOPHILS # (AUTO) 0.1 X10'3 (0-0.2); BASOPHILS % (AUTO) 0.8 % (0-1); EOSINOPHILS # (AUTO) 0.1 X10'3 (0-0.9); EOSINOPHILS % (AUTO) 1.4 % (0-6); HEMATOCRIT 38.7 % (42.0-52.0); HEMOGLOBIN 12.2 g/dl (14.0-17.9); LYMPHOCYTES # (AUTO) 0.5 X10'3 (1.1-4.8); LYMPHOCYTES % (AUTO) 8.2 % (21-51); MEAN CORPUSCULAR HEMOGLOBIN 26.7 PG (27.0-31.0); MEAN CORPUSCULAR HGB CONC 31.6 g/dL (33.0-36.5); MEAN CORPUSCULAR VOLUME 84.3 FL (78-98); MEAN PLATELET VOLUME 9.5 FL (7.4-10.4); MONOCYTES # (AUTO) 0.5 X10'3 (0-0.9); MONOCYTES % (AUTO) 7.8 % (2-12); NEUTROPHILS # (AUTO) 5.2 X10'3 (1.8-7.7); NEUTROPHILS % (AUTO) 81.8 % (42-75); PLATELET COUNT 149 X10'3 (140-440); RED BLOOD COUNT 4.59 X10'6 (4.70-6.10); RED CELL DISTRIBUTION WIDTH 18.1 % (11.5-14.5); WHITE BLOOD COUNT 6.4 X10'3 (4.5-11.0)
[2022-09-30] MEDS ORDERED: PHENYLephrine 10mg/ml inj. 50 MG in normal saline 250ml IV soln 245 ML IV SCH (07:40)
[2022-09-30] MEDS ORDERED: nitroPRUSSIDE sod inj. 50 MG in dextrose 5%-water 248 ML IV SCH (07:42)
[2022-09-30] MEDS ORDERED: nitroPRUSSIDE 0.2mg/mL in NS 100 ML IV SCH (07:49)
[2022-09-30] MEDS ORDERED: acetaminophen 1,000mg/100ml IV 100 ML IV PRN (07:55)
[2022-09-30] MEDS ORDERED: ondansetron/PF 4mg/2ml inj IV PRN (07:55)
[2022-09-30] MEDS ORDERED: morphine 2 MG/ML inj. syringe IV PRN (07:55)
[2022-09-30] MEDS ORDERED: ringers solution, lacted 1,000 ML IV SCH (07:55)
[2022-09-30] MEDS ORDERED: HYDROmorphone/PF 0.2 MG/ML SYRINGE IV PRN ×2 (07:55)
[2022-09-30] MEDS ORDERED: meperidine/PF 25mg/ml syringe IV PRN (07:55)
[2022-09-30] MEDS ORDERED: proCHLORperazine 10 MG/2 ml inj IV PRN (07:55)
[2022-09-30] MEDS ORDERED: hydrALAZINE 20mg/ml inj. IV PRN (07:55)
[2022-09-30] MEDS ORDERED: sevoflurane 250ml liquid IH ONE (07:56)
[2022-09-30] MEDS: losartan 50mg tablet PO SCH (08:00)
[2022-09-30] MEDS: docusate sod 100mg capsule PO SCH ×2 (08:00→19:02)
[2022-09-30] MEDS: ezetimibe 10mg tablet PO SCH (08:00)
[2022-09-30] MEDS: doxazosin mesylate 2mg tablet PO SCH (08:00)
[2022-09-30] MEDS: atorvastatin 20mg tablet PO SCH (08:00)
[2022-09-30] MEDS: K and/or MAG REPLACEMENT MC SCH ×2 (08:00→19:00)
[2022-09-30] MEDS: isosorbide mononitrate 30mg tab.SR.24H PO SCH (08:00)
[2022-09-30] MEDS ORDERED: FENTANYL CITRATE/PF 50 MCG/1 ML VIAL ONE (08:09)
[2022-09-30] MEDS ORDERED: midazolam 1 mg/ML 2ml injection ONE (08:10)
[2022-09-30 08:16] LABS: ALANINE AMINOTRANSFERASE 29 U/L (12-78); ALBUMIN/GLOBULIN RATIO 0.9 (1.1-1.5); ALKALINE PHOSPHATASE 84 IU/L (46-116); ANION GAP 10 (8-16); ASPARTATE AMINO TRANSFERASE 29 U/L (10-37); BILIRUBIN,TOTAL 0.3 MG/DL (0.1-1.0); BLOOD UREA NITROGEN 18 MG/DL (7-18); BUN/CREATININE RATIO 9.4 (5.4-32.0); CALCIUM 8.1 MG/DL (8.5-10.1); CHLORIDE 109 MMOL/L (99-107); CREATININE 1.92 MG/DL (0.60-1.10); GLUCOSE 102 MG/DL (70-104); MAGNESIUM 1.6 MG/DL (1.5-2.4); PHOSPHORUS 2.9 MG/DL (2.3-4.5); POTASSIUM 3.8 MMOL/L (3.5-5.1); SODIUM 141 MMOL/L (135-145); TOTAL CARBON DIOXIDE 22.1 MMOL/L (24-32); TOTAL PROTEIN 6.4 G/DL (6.4-8.2); eGFR 34 ML/MIN
[2022-09-30] MEDS ORDERED: 0.9 % SODIUM CHLORIDE 10 ML VIAL ONE (08:50)
[2022-09-30] MEDS ORDERED: propofol inj 20 ML IV ONE (08:50)
[2022-09-30] MEDS ORDERED: ePHEDrine 50MG/ML INJ. ONE (08:50)
[2022-09-30] MEDS ORDERED: rocuronium 10mg/ml inj IV ONE (08:50)
[2022-09-30] MEDS ORDERED: LIDOcaine 2% (20mg/ml) 5ml vial ONE (08:50)
[2022-09-30] MEDS ORDERED: ceFAZolin 1000mg inj ONE ×2 (08:50)
[2022-09-30] MEDS ORDERED: dexamethasone sod phosphate 4mg/ml inj. ONE (08:58)
[2022-09-30] MEDS ORDERED: ondansetron/PF 4mg/2ml inj ONE (08:58)
[2022-09-30] MEDS ORDERED: heparin 10,000 units/1 ML INJ IV ONE (09:18)
[2022-09-30] MEDS ORDERED: LIDOcaine 1% 30ml preserv. free vial IJ ONE (09:18)
[2022-09-30] MEDS ORDERED: neostigmine methylsulfate 1 MG/ML 10ml vial ONE (10:27)
[2022-09-30] MEDS ORDERED: heparin 1,000unit/ml 10ml vial 10 ML ONE (10:27)
[2022-09-30] MEDS ORDERED: glycopyrrolate 0.2mg/ml inj ONE (10:27)
--- NOTE | 2022-09-30 10:39 | NUR ---
Received from OR via bed, accompanied by Anesthesiologist Dr. Diamond and OR nurse. PT ARRIVED DROWSY ON 10L OF 02 VIA MASK. PT HAS DRESSING TO LEFT SIDE OF NECK THAT HAS VERY MINIMAL SCANT RED SHOWING THROUGH. MELODY DRAIN ATTACHED AND DRAINING BLOOD TINGED FLUID. 20G IV TO LEFT UPPER ARM. ART LINE IN RIGHT WRIST AND ZEROED ON THE MONITOR. NEURO CHECKS COMPLETED AND W/N/L. BILATERAL PEDAL AND RADIAL PULSES W/N/L. PT COMPLAINS OF PAIN IN LEFT NECK 07/06. WILL MEDICATE PER EMAR. SYLVIA AND NIPRIDE LABELED AND TURNED OFF. WILL CONTINUE TO ASSESS AND MONITOR. Addendum: 09/30/22 at 1139 by Stephanie Guadarrama RN Amended: Links added.
[2022-09-30] MEDS: morphine 4 MG/ML inj SYRINge IV PRN ×2 (10:47→11:01)
[2022-09-30] MEDS: labetalol 20mg/4ml (5mg/ml) syringe IV PRN ×2 (10:48→11:44)
--- NOTE | 2022-09-30 12:02 | NUR ---
Patient in room CICU 2008. I have received report from Stephanie HOUSE and had the opportunity to ask questions and assume patient care.
--- NOTE | 2022-09-30 12:09 | NUR ---
Report called to receiving nurse HARSH RUTH. Transferred via BED ON MONITOR AND 3L 02 VIA NC. Special Issues communicated to receiving nurse. PT HAS DRESSING TO LEFT SIDE OF NECK THAT HAS VERY MINIMAL SCANT RED SHOWING THROUGH NO CHANGE FROM ARRIVAL. MELODY DRAIN EMPTIED PRIOR TO TRANSPORT. 20G IV TO LEFT UPPER ARM AND ART LINE IN RIGHT WRIST IN PLACE. NEURO CHECKS COMPLETED AND W/N/L. BILATERAL PEDAL AND RADIAL PULSES W/N/L. PT PAIN IS TOLERABLE AND PT HAS BEEN RESTING WITH EYES CLOSED. VSS. RN AT BEDSIDE TO ASSUME CARE OF PT UPON ARRIVAL Addendum: 09/30/22 at 1227 by Stephanie Guadarrama RN Amended: Links added.
--- NOTE | 2022-09-30 12:53 | NUR ---
Family to see Pts family visited. Pt responded appropriately to each of them (3). Requested water. Dentures placed in denture cup with water, lid with pts label attached. Pt resting comfortably, denies any pain.
[2022-09-30] MEDS: metoprolol succinate 25mg (24-HOUR) SR. Tablet PO SCH (14:28)
[2022-09-30] MEDS: amiodarone 200mg tablet PO SCH (14:28)
[2022-09-30] MEDS ORDERED: LIDOcaine 2% 10ml TOPICAL JELLY (Urojet) TP ONE (15:19)
--- NOTE | 2022-09-30 15:45 | NUR ---
Rito rodgers placed on pt for temp of 35.9, temp mcgee placed due to urinary retention, pt unable to void, bladder scan read 820ml. Dr. See was informed and ordered mcgee.
--- NOTE | 2022-09-30 18:00 | NUR ---
Dr. See at bedside, stated DC art line and okay to transfer to surgical. MELODY drain to stay in place.
--- NOTE | 2022-09-30 18:34 | NUR ---
Problems reprioritized. Patient report given, questions answered & plan of care reviewed with Dagoberto HOUSE.
--- NOTE | 2022-09-30 19:31 | NUR ---
Report called to nurse December on PCU. Patient being transferred from CICU 2008-A to PCU 3012-C.
[2022-09-30] MEDS: insulin glargine (Lantus) pen - multi-dose SQ SCH (21:00)
[2022-09-30] MEDS: temazepam 15mg capsule PO PRN (22:03)
[2022-10-01] VITALS: BP 146/53
[2022-10-01] MEDS: heparin, porcine 5000 units/ml vial SQ SCH ×2 (00:48→07:54)
[2022-10-01 02:00] VITALS: BP 130/62
[2022-10-01] MEDS: ipratropium/albuterol 3ml nebule IH SCH ×3 (02:00→14:00)
[2022-10-01] MEDS: normal saline 1000ml 1,000 ML IV SCH (05:21)
[2022-10-01 07:00] VITALS: BP 158/78
--- NOTE | 2022-10-01 07:11 | NUR ---
Patient in room PCU 3012. I have received report from Deana HARSH and had the opportunity to ask questions and assume patient care. Bedside report given. Call light within reach. Pt is awake. Jacques Abernathy drain noted to left aspect of neck, serosanguineous drainage scant drainage noted. Per rn shift mgr, 17 ml drainage noted. Pt stated he recieved a [place] recently and denies pain. Call light within reach. Addendum: 10/01/22 at 0713 by Tad Griggs LVN Amended: Links added.
[2022-10-01 07:22] LABS: BASOPHILS % (AUTO) 0.1 % (0-1); EOSINOPHILS % (AUTO) 0 % (0-6); HEMATOCRIT 31.8 % (42.0-52.0); HEMOGLOBIN 10.3 g/dl (14.0-17.9); LYMPHOCYTES # (AUTO) 0.2 X10'3 (1.1-4.8); LYMPHOCYTES % (AUTO) 2.2 % (21-51); MEAN CORPUSCULAR HEMOGLOBIN 27.2 PG (27.0-31.0); MEAN CORPUSCULAR HGB CONC 32.2 g/dL (33.0-36.5); MEAN CORPUSCULAR VOLUME 84.4 FL (78-98); MEAN PLATELET VOLUME 9.7 FL (7.4-10.4); MONOCYTES # (AUTO) 0.5 X10'3 (0-0.9); MONOCYTES % (AUTO) 5.6 % (2-12); NEUTROPHILS # (AUTO) 8.1 X10'3 (1.8-7.7); NEUTROPHILS % (AUTO) 92.1 % (42-75); PLATELET COUNT 150 X10'3 (140-440); RED BLOOD COUNT 3.77 X10'6 (4.70-6.10); RED CELL DISTRIBUTION WIDTH 18.8 % (11.5-14.5); WHITE BLOOD COUNT 8.8 X10'3 (4.5-11.0)
[2022-10-01] MEDS: isosorbide mononitrate 30mg tab.SR.24H PO SCH (07:48)
[2022-10-01] MEDS: metoprolol succinate 25mg (24-HOUR) SR. Tablet PO SCH (07:49)
[2022-10-01] MEDS: ezetimibe 10mg tablet PO SCH (07:49)
[2022-10-01] MEDS: losartan 50mg tablet PO SCH (07:52)
[2022-10-01] MEDS: atorvastatin 20mg tablet PO SCH (07:52)
[2022-10-01] MEDS: amiodarone 200mg tablet PO SCH (07:52)
[2022-10-01] MEDS: levoTHYROXINE 88mcg tablet PO SCH (07:52)
[2022-10-01] MEDS: docusate sod 100mg capsule PO SCH (07:53)
[2022-10-01] MEDS: doxazosin mesylate 2mg tablet PO SCH (07:53)
[2022-10-01] MEDS: K and/or MAG REPLACEMENT MC SCH (08:00)
--- NOTE | 2022-10-01 08:00 | NUR ---
will follow up with bowel management medications Addendum: 10/01/22 at 1420 by Tad Griggs LVN Amended: Links added.
[2022-10-01 08:23] LABS: CHLORIDE 108 MMOL/L (99-107); POTASSIUM 4.3 MMOL/L (3.5-5.1); SODIUM 138 MMOL/L (135-145)
[2022-10-01 08:32] LABS: ALANINE AMINOTRANSFERASE 46 U/L (12-78); ALBUMIN 2.7 G/DL (3.4-5.0); ALBUMIN/GLOBULIN RATIO 0.8 (1.1-1.5); ALKALINE PHOSPHATASE 66 IU/L (46-116); ANION GAP 11 (8-16); ASPARTATE AMINO TRANSFERASE 37 U/L (10-37); BILIRUBIN,TOTAL 0.3 MG/DL (0.1-1.0); BLOOD UREA NITROGEN 19 MG/DL (7-18); BUN/CREATININE RATIO 9.9 (5.4-32.0); CALCIUM 7.6 MG/DL (8.5-10.1); CREATININE 1.92 MG/DL (0.60-1.10); GLUCOSE 163 MG/DL (70-104); MAGNESIUM 1.5 MG/DL (1.5-2.4); PHOSPHORUS 3.2 MG/DL (2.3-4.5); TOTAL CARBON DIOXIDE 19.1 MMOL/L (24-32); TOTAL PROTEIN 5.9 G/DL (6.4-8.2); eGFR 34 ML/MIN
[2022-10-01 11:58] VITALS: BP 153/68
[2022-10-01] MEDS ORDERED: HYDR-3965 PO (13:34)
[2022-10-01] MEDS ORDERED: CLOP-32 PO (13:54)
--- NOTE | 2022-10-01 15:51 | NUR ---
All verbal and written instructions provided to patient and daughter. All concerns and questions answered. Jacques greenwood drain discontinued with 20ml of serosanguineous drainage with a 6mm sanguineous linear clot noted, sterile technique observed. Dry dressing in place with tegaderm. PIV discontinued. Pt ambulated to daughter vehicle via wheelchair. Cellphone and radio mechanic helper taken with patient. All belongings taken with patient. Addendum: 10/01/22 at 1610 by Tad Griggs LVN Amended: Links added.
== END 2022-10-01 16:00 | disposition home or self-care (01) | DRG 37 ==
LOC: ER 15:58 → ED HOLD 18:22 → EDBEDREQ 19:44 → PCU 3S 21:30 → CICU 2S 09-30 09:00 → PCU 3S 09-30 19:46
PROVIDERS: ADMIT Family Medicine; ATTEND Family Medicine
PROC: 4A02XM4 Measurement of Cardiac Total Activity, External Approach (ICD-10-PCS; 2022-09-28)
PROC: 3E033HZ Introduction of Radioactive Substance into Peripheral Vein, Percutaneous Approach (ICD-10-PCS; 2022-09-28)
PROC: 03CL0ZZ Extirpation of Matter from Left Internal Carotid Artery, Open Approach (ICD-10-PCS; 2022-09-30)
PROC: 03CN0ZZ Extirpation of Matter from Left External Carotid Artery, Open Approach (ICD-10-PCS; 2022-09-30)
PROC: 03UJ0KZ Supplement Left Common Carotid Artery with Nonautologous Tissue Substitute, Open Approach (ICD-10-PCS; 2022-09-30)
PROC: 03UL0KZ Supplement Left Internal Carotid Artery with Nonautologous Tissue Substitute, Open Approach (ICD-10-PCS; 2022-09-30)
PROC: 03UN0KZ Supplement Left External Carotid Artery with Nonautologous Tissue Substitute, Open Approach (ICD-10-PCS; 2022-09-30)
PROC: 03CJ0ZZ Extirpation of Matter from Left Common Carotid Artery, Open Approach (ICD-10-PCS; principal; 2022-09-30 08:06)
DX: I65.22 Occlusion and stenosis of left carotid artery (principal); N17.0 Acute kidney failure with tubular necrosis; E87.1 Hypo-osmolality and hyponatremia; I13.0 Hypertensive heart and chronic kidney disease with heart failure and stage 1 through stage 4 chronic kidney disease, or unspecified chronic kidney disease; E78.5 Hyperlipidemia, unspecified; E86.0 Dehydration; Z20.822 Contact with and (suspected) exposure to COVID-19; E87.5 Hyperkalemia; I25.10 Atherosclerotic heart disease of native coronary artery without angina pectoris; E11.22 Type 2 diabetes mellitus with diabetic chronic kidney disease; N18.9 Chronic kidney disease, unspecified; I95.9 Hypotension, unspecified; Z60.2 Problems related to living alone; R63.4 Abnormal weight loss; I48.0 Paroxysmal atrial fibrillation; I50.9 Heart failure, unspecified; J44.9 Chronic obstructive pulmonary disease, unspecified; Z79.01 Long term (current) use of anticoagulants; Z79.02 Long term (current) use of antithrombotics/antiplatelets; Z82.49 Family history of ischemic heart disease and other diseases of the circulatory system; Z87.891 Personal history of nicotine dependence; Z95.1 Presence of aortocoronary bypass graft; Z68.25 Body mass index [BMI] 25.0-25.9, adult; Z79.899 Other long term (current) drug therapy
CPT/HCPCS: 36415; 70450; 70551; 71045; 76770; 78452; 80053; 80061; 81003; 82570; 82948; 83036; 83735; 83880; 84100; 84132; 84156; 84300; 84443; 84484; 84540; 85025; 85730; 86885; 86900; 86901; 87081; 87207; 87811; 93017; 93306; 93880; 94640; 94760; 95813; 95816; 96361; 96374; 96375; 97116; 97161; 97530; 99285; A4615; A4618; A6213; A6258; A6402; A6449; A7000; A9500; C1768; G0378; J0131; J0690; J1100; J1170; J1644; J1815; J2250; J2270; J2370; J2405; J2704; J2710; J2785; J3010; J3490; J7030; J7040; J7050; J7120; Q0163